=== PATIENT | female | born 1965 | race Caucasian/White ===

== ENCOUNTER 2025-04-06 21:31 | Inpatient (IN) | payer OTHER ==
[~2025-04-06] VITALS: Ht 157.5 cm; Wt 59.0 kg
[2025-04-06] MEDS: IV NS 0.9% 1,000 ML IV ONE (23:14)
[2025-04-06 23:18] LABS: BASOPHILS % (AUTO) 0.7 % (0.0-2.0); EOSINOPHILS # (AUTO) 0.3 K/uL (0.0-0.7); HEMATOCRIT 34 % (33-45); HEMOGLOBIN 10.4 g/dL (11.5-14.8); LYMPHOCYTES % (AUTO) 13.9 % (20.0-44.0); MEAN CORPUSCULAR HEMOGLOBIN 23 PG (26.0-33.0); MEAN CORPUSCULAR HGB CONC 31 g/dl (31.0-36.0); MEAN CORPUSCULAR VOLUME 74 fL (82-100); MONOCYTES # (AUTO) 0.5 K/uL (0.1-1.30); MONOCYTES % (AUTO) 7.6 % (2.0-12.0); NEUTROPHILS # (AUTO) 5.1 K/uL (1.8-8.9); NEUTROPHILS % (AUTO) 73.8 % (43.0-81.0); PLATELET COUNT (AUTO) 350 K/uL (150-450); RED BLOOD CELL COUNT(AUTO) 4.55 MIL/uL (4.0-5.2); RED CELL DISTRIBUTION WIDTH 18.9 % (11.5-15.0); WHITE BLOOD COUNT (AUTO) 6.9 K/uL (4.3-11.0)
[2025-04-06 23:25] VITALS: O2SAT 99
[2025-04-06 23:25] LABS: CALCIUM, SERUM 9.6 mg/dL (8.5-10.1); CREATININE 0.4 mg/dL (0.6-1.3); POTASSIUM 4.3 mmol/L (3.5-5.1)
[2025-04-06 23:30] LABS: ALBUMIN 2.5 g/dL (3.4-5.0); BILIRUBIN,TOTAL 0.2 mg/dL (0.2-1.0); TOTAL PROTEIN, SERUM 7.2 g/dL (6.4-8.2)
[2025-04-07] VITALS (11 sets, daily range): BP systolic 95–116; BP diastolic 57–99; TEMP 97.9–98.6; O2SAT 96–100
[2025-04-07 00:11] LABS: APPEARANCE,URINE CLEAR (CLEAR); BILIRUBIN,URINE NEGATIVE (NEGATIVE); BLOOD, URINE NEGATIVE Ery/uL (NEGATIVE); COLOR,URINE YELLOW (YELLOW); KETONES,URINE NEGATIVE (NEGATIVE); LEUKOCYTE ESTERASE ,URINE NEGATIVE (NEGATIVE); NITRITE, URINE NEGATIVE (NEGATIVE); PROTEIN,URINE NEGATIVE (NEGATIVE); UGLUCOSE NEGATIVE (NEGATIVE); UROBILINOGEN,URINE 0.2 EU/dL (0.2)
[2025-04-07 00:14] LABS: ANISOCYTOSIS 1+; PLATELET ESTIMATE ADEQUATE
[2025-04-07] MEDS ORDERED: PIPERACI/TAZO 3.375GM/D5W 50ML PB IV ONE (00:39)
[2025-04-07] MEDS: PIPERACILLIN /TAZOBACTAM 3.375 G in IV D5W 50 ML IV ONE (00:49)
[2025-04-07] MEDS ORDERED: ONDANSETRON HCL/PF 4 MG/2 ML VIAL IVP PRN (01:00)
[2025-04-07] MEDS ORDERED: ALBUTEROL FS 2.5 MG/3 ML VIAL.NEB NEB PRN (01:00)
[2025-04-07] MEDS ORDERED: Z GUARD REMEDY 4 OZ OINT TP PRN (01:00)
[2025-04-07] MEDS ORDERED: IPRATROPIUM NEB FS 0.5 MG/2.5 ML AMPUL.NEB NEB PRN (01:00)
[2025-04-07] MEDS: IV D5/ 0.9% NACL 1,000 ML IV PRN (03:18)
[2025-04-07] MEDS: PIPERACI/TAZO 3.375GM/D5W 50ML PB IV ONE (04:11)
[2025-04-07] MEDS: PIPERACILLIN /TAZOBACTAM 3.375 G in IV D5W 50 ML IV SCH (04:14)
[2025-04-07] MEDS ORDERED: PIPERACILLIN /TAZOBACTAM 3.375 G in IV D5W 50 ML IV SCH (05:00)
[2025-04-07] MEDS: PANTOPRAZOLE 40 MG VIAL IV SCH (08:45)
[2025-04-07] MEDS: ENOXAPARIN SODIUM 40 MG/0.4 ML DISP.SYRIN SQ SCH (09:00)
[2025-04-07] MEDS ORDERED: DEXTROSE 50%-WATER 50 ML DISP.SYRIN IV PRN (10:30)
[2025-04-07] MEDS: DAKINS QUARTER STRENGTH (0.125%) 480 ML BOTTLE TOP SCH (10:42)
[2025-04-07] MEDS: INSULIN REGULAR, HUMAN 100 UNIT/ML 3 ML VIAL SQ PRN (11:24)
[2025-04-07] MEDS: BLOOD SUGAR DIAGNOSTIC 1 EACH STRIP IN SCH (11:24)
[2025-04-07] MEDS: PIPERACILLIN /TAZOBACTAM 3.375 G in IV D5W 100 ML IV SCH (11:40)
[2025-04-07] MEDS: ENOXAPARIN SODIUM 60 MG/0.6 ML DISP.SYRIN SQ SCH (17:18)
[2025-04-07] MEDS: NYSTATIN/TRIAMCIN CREAM 15 GM TUBE TP SCH (17:53)
[2025-04-08] VITALS (12 sets, daily range): BP systolic 104–118; BP diastolic 57–75; TEMP 97.2–98.8; O2SAT 95–100
[2025-04-08 07:38] LABS: BASOPHILS % (AUTO) 0.8 % (0.0-2.0); EOSINOPHILS # (AUTO) 0.3 K/uL (0.0-0.7); EOSINOPHILS % (AUTO) 5.7 % (0.0-6.0); HEMATOCRIT 33 % (33-45); HEMOGLOBIN 10.4 g/dL (11.5-14.8); LYMPHOCYTES # (AUTO) 1.1 K/uL (0.8-4.8); LYMPHOCYTES % (AUTO) 23.1 % (20.0-44.0); MEAN CORPUSCULAR HEMOGLOBIN 23 PG (26.0-33.0); MEAN CORPUSCULAR HGB CONC 32 g/dl (31.0-36.0); MEAN CORPUSCULAR VOLUME 74 fL (82-100); MONOCYTES # (AUTO) 0.6 K/uL (0.1-1.30); MONOCYTES % (AUTO) 13.7 % (2.0-12.0); NEUTROPHILS # (AUTO) 2.6 K/uL (1.8-8.9); NEUTROPHILS % (AUTO) 56.7 % (43.0-81.0); PLATELET COUNT (AUTO) 296 K/uL (150-450); RED BLOOD CELL COUNT(AUTO) 4.44 MIL/uL (4.0-5.2); RED CELL DISTRIBUTION WIDTH 18.4 % (11.5-15.0); WHITE BLOOD COUNT (AUTO) 4.6 K/uL (4.3-11.0)
[2025-04-08 07:41] LABS: CALCIUM, SERUM 9.1 mg/dL (8.5-10.1); CREATININE 0.4 mg/dL (0.6-1.3); MAGNESIUM 2.2 mg/dL (1.8-2.4); PHOSPHORUS 4.4 mg/dL (2.5-4.9); POTASSIUM 3.9 mmol/L (3.5-5.1)
[2025-04-08] MEDS ORDERED: IV D5/ 0.9% NACL 1,000 ML IV PRN (14:00)
[2025-04-08] MEDS: PPN BAG #1 IV SCH (14:26)
[2025-04-08 15:33] LABS: ALBUMIN 2.5 g/dL (3.4-5.0)
[2025-04-08 15:40] LABS: PREALBUMIN 20.6 MG/DL (18.0-35.7)
[2025-04-08] MEDS: IV D5/ 0.9% NACL 1,000 ML IV PRN (16:20)
[2025-04-08 21:02] LABS: INR 1.03 (0.91-1.10); PROTHROMBIN TIME 10.9 SECS (9.2-11.1)
[2025-04-09] VITALS (11 sets, daily range): BP systolic 93–129; BP diastolic 51–87; TEMP 98.2–98.6; O2SAT 95–100
[2025-04-09 07:47] LABS: CALCIUM, SERUM 9.3 mg/dL (8.5-10.1); CREATININE 0.5 mg/dL (0.6-1.3); POTASSIUM 3.4 mmol/L (3.5-5.1)
[2025-04-09] MEDS ORDERED: PPN BAG #2 IV SCH (08:30)
[2025-04-09] MEDS: POTASSIUM CL. PREMIX PERIPHER. 50 ML IV SCH (09:32)
[2025-04-09] MEDS: PPN BAG #2 IV SCH (18:05)
[2025-04-09] MEDS: IV D5/ 0.9% NACL 1,000 ML IV PRN (20:03)
[2025-04-10] VITALS (14 sets, daily range): BP systolic 98–121; BP diastolic 54–89; TEMP 98.2–99.5; O2SAT 97–100
[2025-04-10 08:19] LABS: BASOPHILS # (AUTO) 0.1 K/uL (0.0-0.2); BASOPHILS % (AUTO) 0.5 % (0.0-2.0); EOSINOPHILS # (AUTO) 0.3 K/uL (0.0-0.7); EOSINOPHILS % (AUTO) 2.8 % (0.0-6.0); HEMATOCRIT 35 % (33-45); HEMOGLOBIN 11.4 g/dL (11.5-14.8); LYMPHOCYTES # (AUTO) 1.1 K/uL (0.8-4.8); LYMPHOCYTES % (AUTO) 10.3 % (20.0-44.0); MEAN CORPUSCULAR HEMOGLOBIN 24 PG (26.0-33.0); MEAN CORPUSCULAR HGB CONC 32 g/dl (31.0-36.0); MEAN CORPUSCULAR VOLUME 74 fL (82-100); MONOCYTES # (AUTO) 0.6 K/uL (0.1-1.30); MONOCYTES % (AUTO) 5.6 % (2.0-12.0); NEUTROPHILS # (AUTO) 8.3 K/uL (1.8-8.9); NEUTROPHILS % (AUTO) 80.8 % (43.0-81.0); PLATELET COUNT (AUTO) 405 K/uL (150-450); RED BLOOD CELL COUNT(AUTO) 4.82 MIL/uL (4.0-5.2); RED CELL DISTRIBUTION WIDTH 17.9 % (11.5-15.0); WHITE BLOOD COUNT (AUTO) 10.3 K/uL (4.3-11.0)
[2025-04-10 08:40] LABS: INR 1.03 (0.91-1.10); PARTIAL THROMBOPLASTIN TIME 29.1 SEC (24.3-34.3); PROTHROMBIN TIME 10.9 SECS (9.2-11.1)
[2025-04-10 08:41] LABS: CALCIUM, SERUM 9.5 mg/dL (8.5-10.1); CREATININE 0.6 mg/dL (0.6-1.3); POTASSIUM 3.9 mmol/L (3.5-5.1)
[2025-04-10 11:06] LABS: PHOSPHORUS 4.1 mg/dL (2.5-4.9)
[2025-04-10] MEDS: PPN BAG #3 IV SCH (15:47)
[2025-04-10 22:41] LABS: CHOLESTEROL 133 mg/dL (<200); HDL CHOLESTEROL 40 mg/dL (40-60)
[2025-04-10 22:42] LABS: LDL 68 mg/dL (0-99); TRIGLYCERIDES 193 mg/dL (30-150)
[2025-04-10] MEDS: ACETAMINOPHEN 650 MG/SUPP.RECT RC PRN (23:22)
[2025-04-11] VITALS (8 sets, daily range): BP systolic 100–136; BP diastolic 55–83; TEMP 98.6–100.6; O2SAT 98–100
[2025-04-11 07:29] LABS: BASOPHILS % (AUTO) 0.6 % (0.0-2.0); EOSINOPHILS # (AUTO) 0.2 K/uL (0.0-0.7); EOSINOPHILS % (AUTO) 2.2 % (0.0-6.0); HEMATOCRIT 37 % (33-45); HEMOGLOBIN 11.4 g/dL (11.5-14.8); LYMPHOCYTES # (AUTO) 0.9 K/uL (0.8-4.8); LYMPHOCYTES % (AUTO) 10.3 % (20.0-44.0); MEAN CORPUSCULAR HEMOGLOBIN 23 PG (26.0-33.0); MEAN CORPUSCULAR HGB CONC 31 g/dl (31.0-36.0); MEAN CORPUSCULAR VOLUME 73 fL (82-100); MONOCYTES # (AUTO) 0.6 K/uL (0.1-1.30); MONOCYTES % (AUTO) 7.2 % (2.0-12.0); NEUTROPHILS # (AUTO) 6.9 K/uL (1.8-8.9); NEUTROPHILS % (AUTO) 79.7 % (43.0-81.0); PLATELET COUNT (AUTO) 402 K/uL (150-450); RED CELL DISTRIBUTION WIDTH 18.6 % (11.5-15.0); WHITE BLOOD COUNT (AUTO) 8.7 K/uL (4.3-11.0)
[2025-04-11 07:40] LABS: CALCIUM, SERUM 9.3 mg/dL (8.5-10.1); CREATININE 0.6 mg/dL (0.6-1.3); PHOSPHORUS 4.3 mg/dL (2.5-4.9); POTASSIUM 3.2 mmol/L (3.5-5.1)
[2025-04-11] MEDS: PPN BAG #4 IV SCH (08:38)
[2025-04-11] MEDS: POTASSIUM CL. PREMIX PERIPHER. 50 ML IV SCH (12:34)
[2025-04-11] MEDS ORDERED: NYST15CR2 TP (12:37)
[2025-04-11] MEDS ORDERED: ALBUT2 NEB (12:37)
[2025-04-11] MEDS ORDERED: SODI473S8 TOP (12:37)
[2025-04-11] MEDS ORDERED: PANT40SU2 GT (12:37)
[2025-04-11] MEDS: FAT EMULSION 20% 500 ML in PREMIX 1 EA IV SCH (14:00)
[2025-04-11] MEDS: MORPHINE SULFATE INJ 2 MG/ML DISP.SYRIN IV PRN (14:07)
[2025-04-11] MEDS: METOPROLOL TARTRATE 25 MG TABLET PO STA (15:19)
[2025-04-11] MEDS: METOPROLOL TARTRATE INJ 5 MG/5 ML AMPUL IVP STA (15:19)
[2025-04-11] MEDS: LOPERAMIDE HCL (2 MG CAP) 2 MG CAPSULE GT PRN (15:19)
== END 2025-04-11 17:10 | DRG 252 ==
LOC: ER 21:32 → TELE1 04-07 01:24
PROVIDERS: ADMIT Internal Medicine; ATTEND Nurse Practitioner Acute Care
PROC: 05HB33Z Insertion of Infusion Device into Right Basilic Vein, Percutaneous Approach (ICD-10-PCS; principal; 2025-04-08)
PROC: 0D20XUZ Change Feeding Device in Upper Intestinal Tract, External Approach (ICD-10-PCS; 2025-04-10)
DX: K94.22 Gastrostomy infection (principal); G93.41 Metabolic encephalopathy; L89.154 Pressure ulcer of sacral region, stage 4; G93.1 Anoxic brain damage, not elsewhere classified; J96.10 Chronic respiratory failure, unspecified whether with hypoxia or hypercapnia; Z86.74 Personal history of sudden cardiac arrest; L03.311 Cellulitis of abdominal wall; Y83.3 Surgical operation with formation of external stoma as the cause of abnormal reaction of the patient, or of later complication, without mention of misadventure at the time of the procedure; Y92.129 Unspecified place in nursing home as the place of occurrence of the external cause; E11.9 Type 2 diabetes mellitus without complications; I10 Essential (primary) hypertension; I25.10 Atherosclerotic heart disease of native coronary artery without angina pectoris; R13.10 Dysphagia, unspecified; E78.5 Hyperlipidemia, unspecified; Z86.718 Personal history of other venous thrombosis and embolism; Z74.01 Bed confinement status; Z88.1 Allergy status to other antibiotic agents; R32 Unspecified urinary incontinence; L22 Diaper dermatitis; J45.909 Unspecified asthma, uncomplicated; L98.9 Disorder of the skin and subcutaneous tissue, unspecified; K94.23 Gastrostomy malfunction
CPT/HCPCS: 31720; 36415; 43246; 71045-TC; 74018; 74150-TC; 76882; 80048-TC; 80053-TC; 80061-TC; 82040-TC; 82962-TC; 83735-TC; 84100-TC; 84134-TC; 85025-TC; 85610-TC; 85730-TC; 87040-TC; 87081-TC; 94640-TC; 94760-TC; 94762-TC; 94799-TC; 99082-TC; A4216; A4217; A4223; A6403; G0378; J1650; J1815; J2270; J2470; J2543; J2704; J3480; J3490; J7030; J7042; J7060